=== PATIENT | female | born 1995 | race Hispanic/Latino ===

== ENCOUNTER 2017-07-16 14:54 | Emergency (ER) | payer OTHER ==
[2017-07-16 16:02] LABS: Urine Blood NEGATIVE (NEG); Urine Glucose NEGATIVE (NEG); Urine Protein 1+ (NEG)
[2017-07-16 16:23] LABS: Absolute Lymphocytes (CBC) 1.8 K/uL (0.7-4.9); Absolute Monocytes 0.5 K/uL (0.1-1.3); Absolute Neutrophil 6.4 K/uL (1.8-8.0); Basophils % 0.7 % (0-1.3); Eosinophils % 1.5 % (0-4.4); Hematocrit 39.9 % (36.0-45.0); Lymphocytes % 19.8 % (15.3-44.8); MCH 28.6 pg (27.0-35.0); MCV 85.2 fL (80-100); MPV 9.8 fL (7.6-11.3); Monocytes % 5.9 % (3.3-12.3); RBC Red Blood Cell Count 4.68 M/uL (3.86-4.86)
[2017-07-16] MEDS ORDERED: NA CHLORIDE 0.9% 2,000 ML ONE (16:36)
[2017-07-16] MEDS ORDERED: ONDANSETRON 4 MG/2 ML VIAL ONE (16:36)
[2017-07-16 16:51] LABS: Bicarbonate 25 mEq/L (21-31); Glucose Level 88 mg/dL (65-120); Potassium 3.7 mEq/L (3.6-5.0); Sodium Level 136 mEq/L (135-145)
[2017-07-16 16:54] LABS: ALT/SGPT 18 IU/L (10-60); AST/SGOT 20 IU/L (10-42); Albumin 4.3 g/dL (3.2-5.5); Alkaline Phosphatase 56 IU/L (42-121); BUN Blood Urea Nitrogen 8 mg/dL (6-20); Bilirubin Total 0.6 mg/dL (0.3-1.2); Glomerular Filtration Rate > 90 mL/min (=/>90); Protein, Total 7.2 g/dL (6.0-8.3)
--- NOTE | 2017-07-16 17:11 | ER ---
Nurse's Notes [facility] Name: Colleen Macias Age: 22 yrs Sex: Female : 1995 Arrival Date: 07/16/2017 Time: 15:00 Bed 28 Private MD: Diagnosis: Weakness;Vomiting; related conditions, unspecified, first trimester;Urinary tract infection, site not specified Presentation: 07/16 15:08 Presenting complaint: Patient states: lmp may 12 2017. since last night i have been ch vomiting, abdominal cramping. sob and dizzy all day, I think i am dehydrated. Transition of care: patient was not received from another setting of care. 15:08 Method Of Arrival: Ambulatory 15:09 Onset of symptoms was July 15, 2017 at 21:00. Care prior to arrival: None. 15:09 Acuity: ROWDY 3 ch Triage Assessment: 15:09 General: Appears in no apparent distress. uncomfortable, Behavior is calm, cooperative, ch appropriate for age. Pain: Complains of pain in abdomen. Neuro: No deficits noted. GI: Reports upper abdominal pain, cramping, nausea, vomiting. : Reports discharge, from vagina that is denies blood, states there was some discharge over the weekend. 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 - Social history:: Smoking status: Patient/guardian denies using tobacco. - Family history:: not pertinent. Screenin:34 Abuse screen: Denies threats or abuse. Nutritional screening: No deficits noted. kb1 Tuberculosis screening: No symptoms or risk factors identified. Fall Risk None identified. Assessment: 15:34 General: Appears in no apparent distress. Behavior is calm, cooperative. Pain: kb1 Complains of pain in abdomen. Neuro: Level of Consciousness is awake, alert, obeys commands, Oriented to person, place, time, situation. Cardiovascular: Patient's skin is warm and dry. Respiratory: Respiratory effort is even, unlabored, Respiratory pattern is regular, symmetrical. GI: Abd is soft and non tender. : No signs and/or symptoms were reported regarding the genitourinary system. Reports "dark urine". Derm: Skin is pink, warm \\T\\ dry. 16:23 Reassessment: Patient appears in no apparent distress at this time. Patient and/or kb1 family updated on plan of care and expected duration. Pain level reassessed. Patient is alert, oriented x 3, equal unlabored respirations, skin warm/dry/pink. 17:35 Reassessment: Patient appears in no apparent distress at this time. Patient and/or kb1 family updated on plan of care and expected duration. Pain level reassessed. Patient is alert, oriented x 3, equal unlabored respirations, skin warm/dry/pink. Patient states feeling better. Vital Signs: 15:09 BP 115 / 77; Pulse 92; Resp 16; Temp 98.3; Pulse Ox 99% on R/A; Weight 63.5 kg; Height 5 ft. 2 in. (157.48 cm); Pain 0/10; 16:23 BP 101 / 67; Pulse 61; Resp 18; Pulse Ox 100% ; kb1 17:51 BP 104 / 68; Pulse 68; Resp 18; Pulse Ox 100% ; kb1 15:09 Body Mass Index 25.61 (63.50 kg, 157.48 cm) ED Course: 15:00 Patient arrived in ED. mr 15:09 Triage completed. 15:09 Arm band placed on left wrist. Patient placed in an exam room, on a stretcher. 15:13 Angie Acosta, RN is Primary Nurse. 15:16 Primary Nurse role handed off by Angie Acosta, DWAINE kb1 15:16 Ingrid Caceres, RN is Primary Nurse. kb1 15:17 Gaurav Penaloza MD is Attending Physician. park 15:34 Patient has correct armband on for positive identification. Bed in low position. Call kb1 light in reach. Side rails up X 1. Pulse ox on. NIBP on. 15:34 No provider procedures requiring assistance completed. kb1 16:25 Inserted saline lock: 18 gauge in left antecubital area, using aseptic technique. Blood kb1 collected. 17:10 Rafael Ley MD is Referral Physician. park 17:53 IV discontinued, intact, bleeding controlled, No redness/swelling at site. Pressure kb1 dressing applied. Administered Medications: 16:26 Drug: NS 0.9% 1000 ml Route: IV; Rate: 1 bolus; Site: left antecubital; kb1 17:52 Follow up: IV Status: Completed infusion kb1 16:26 Drug: NS 0.9% 1000 ml Route: IV; Rate: 1 bolus; Site: left antecubital; kb1 17:52 Follow up: IV Status: Completed infusion kb1 16:26 Drug: Zofran 4 mg Route: IVP; Site: left antecubital; kb1 17:00 Follow up: Response: Nausea is decreased kb1 17:40 Drug: Rocephin - (cefTRIAXone) 1 grams Route: IVPB; Infused Over: 5 mins; Site: left kb1 antecubital; 17:45 Follow up: IV Status: Completed infusion kb1 Outcome: 17:10 Discharge ordered by MD. nick 17:53 Discharged to home ambulatory, with family. kb1 17:53 Condition: improved 17:53 Discharge instructions given to patient, Instructed on discharge instructions, follow up and referral plans. medication usage, Demonstrated understanding of instructions, follow-up care, medications, Prescriptions given X 5 17:54 Patient left the ED. kb1 Signatures: Angie Acosta, Gaurav Thomas RN, ch, MD MD cha Rivera, Maria mr Brown, Kristina, RN RN kb1
--- NOTE | 2017-07-16 17:11 | EDPHYS ---
Physician Documentation [facility] Name: Colleen Macias Age: 22 yrs Sex: Female : 1995 Arrival Date: 07/16/2017 Time: 15:00 Bed 28 Private MD: ED Physician Gaurav Penaloza HPI: 07/16 16:08 This 22 yrs old Female presents to ER via Ambulatory with complaints of park Weakness, Shortness Of Breath, Urinary Problem. 16:08 The patient presents to the emergency department with weakness of the. Onset: The park symptoms/episode began/occurred 3 day(s) ago. Context: occurred at an unknown location. 16:08 The patient presents to the emergency department with nausea, vomiting. Possible park causes: . The symptoms are aggravated by nothing. The symptoms are alleviated by nothing. Severity of symptoms: At their worst the symptoms were mild in the emergency department the symptoms are unchanged. 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 - Social history:: Smoking status: Patient/guardian denies using tobacco. - Family history:: not pertinent. ROS: 16:08 Constitutional: Negative for fever, chills, and weight loss, Eyes: Negative for injury, park pain, redness, and discharge, ENT: Negative for injury, pain, and discharge, Neck: Negative for injury, pain, and swelling, Cardiovascular: Negative for chest pain, palpitations, and edema, Respiratory: Negative for shortness of breath, cough, wheezing, and pleuritic chest pain, Back: Negative for injury and pain, : Negative for injury, bleeding, discharge, and swelling, MS/Extremity: Negative for injury and deformity, Skin: Negative for injury, rash, and discoloration, Psych: Negative for depression, anxiety, suicide ideation, homicidal ideation, and hallucinations, Allergy/Immunology: Negative for hives, rash, and allergies, Endocrine: Negative for neck swelling, polydipsia, polyuria, polyphagia, and marked weight changes, Hematologic/Lymphatic: Negative for swollen nodes, abnormal bleeding, and unusual bruising. 16:08 Abdomen/GI: Positive for nausea, vomiting. 16:08 Neuro: Positive for weakness. Exam: 16:09 Constitutional: This is a well developed, well nourished patient who is awake, alert, park and in no acute distress. Head/Face: Normocephalic, atraumatic. Eyes: Pupils equal round and reactive to light, extra-ocular motions intact. Lids and lashes normal. Conjunctiva and sclera are non-icteric and not injected. Cornea within normal limits. Periorbital areas with no swelling, redness, or edema. ENT: Nares patent. No nasal discharge, no septal abnormalities noted. Tympanic membranes are normal and external auditory canals are clear. Oropharynx with no redness, swelling, or masses, exudates, or evidence of obstruction, uvula midline. Mucous membranes moist. Neck: Trachea midline, no thyromegaly or masses palpated, and no cervical lymphadenopathy. Supple, full range of motion without nuchal rigidity, or vertebral point tenderness. No Meningismus. Chest/axilla: Normal chest wall appearance and motion. Nontender with no deformity. No lesions are appreciated. Cardiovascular: Regular rate and rhythm with a normal S1 and S2. No gallops, murmurs, or rubs. Normal PMI, no JVD. No pulse deficits. Respiratory: Lungs have equal breath sounds bilaterally, clear to auscultation and percussion. No rales, rhonchi or wheezes noted. No increased work of breathing, no retractions or nasal flaring. Abdomen/GI: Soft, non-tender, with normal bowel sounds. No distension or tympany. No guarding or rebound. No evidence of tenderness throughout. Back: No spinal tenderness. No costovertebral tenderness. Full range of motion. Female : Normal external genitalia. Skin: Warm, dry with normal turgor. Normal color with no rashes, no lesions, and no evidence of cellulitis. MS/ Extremity: Pulses equal, no cyanosis. Neurovascular intact. Full, normal range of motion. Neuro: Awake and alert, GCS 15, oriented to person, place, time, and situation. Cranial nerves II-XII grossly intact. Motor strength 5/5 in all extremities. Sensory grossly intact. Cerebellar exam normal. Normal gait. Psych: Awake, alert, with orientation to person, place and time. Behavior, mood, and affect are within normal limits. Vital Signs: 15:09 BP 115 / 77; Pulse 92; Resp 16; Temp 98.3; Pulse Ox 99% on R/A; Weight 63.5 kg; Height ch 5 ft. 2 in. (157.48 cm); Pain 0/10; 16:23 BP 101 / 67; Pulse 61; Resp 18; Pulse Ox 100% ; kb1 17:51 BP 104 / 68; Pulse 68; Resp 18; Pulse Ox 100% ; [facility] 15:09 Body Mass Index 25.61 (63.50 kg, 157.48 cm) [facility]: 15:17 Patient medically screened. [facility] 16:09 Data reviewed: vital signs, nurses notes, lab test result(s). [facility] 07/16 15:54 Order name: Urine Dipstick--Ancillary (enter results); Complete Time: 16:07 07/16 16:04 Order name: Urine --Ancillary (enter results); Complete Time: 17:10 [facility] 07/16 16:07 Order name: CBC with Diff; Complete Time: 17:10 [facility] 07/16 16:07 Order name: Comprehensive Metabolic Panel; Complete Time: 17:10 [facility] 07/16 17:10 Order name: Urine Culture [facility] Administered Medications: 16:26 Drug: NS 0.9% 1000 ml Route: IV; Rate: 1 bolus; Site: left antecubital; [facility] 17:52 Follow up: IV Status: Completed infusion [facility] 16:26 Drug: NS 0.9% 1000 ml Route: IV; Rate: 1 bolus; Site: left antecubital; [facility] 17:52 Follow up: IV Status: Completed infusion [facility] 16:26 Drug: Zofran 4 mg Route: IVP; Site: left antecubital; [facility] 17:00 Follow up: Response: Nausea is decreased [facility] 17:40 Drug: Rocephin - (cefTRIAXone) 1 grams Route: IVPB; Infused Over: 5 mins; Site: left [facility] antecubital; 17:45 Follow up: IV Status: Completed infusion [facility] Disposition: 07/16/17 17:10 Discharged to Home. Impression: Weakness, Vomiting, related conditions, unspecified, first trimester, Urinary tract infection, site not specified. - Condition is Stable. - Discharge Instructions: Nausea and Vomiting, Urinary Tract Infection, Weakness, First Trimester of , [id number], Nausea and Vomiting, [id number], Urinary Tract Infection, [id number], First Trimester of , Weakness, [id number], Pelvic Rest. - Prescriptions for Diclegis 10- 10 mg Oral tablet,delayed release (DR/EC) - take 1 tablet by ORAL route 3 times per day and 2 tablets at bedtime; 60 tablet. Vitamin 27- 0.8 mg Oral Tablet - take 1 tablet by ORAL route once daily; 30 tablet. Zofran 4 mg Oral Tablet - take 1 tablet by ORAL route every 12 hours As needed; 14 tablet. Folic Acid 1 mg Oral Tablet - take 1 tablet by ORAL route once daily; 30 tablet. Macrobid 100 mg Oral Capsule - take 1 capsule by ORAL route every 12 hours for 7 days; 14 capsule. - Medication Reconciliation Form, Thank You Letter, Antibiotic Education, Presription Opioid Use form. - Follow up: Private Physician; When: 2 - 3 days; Reason: Recheck today's complaints, Continuance of care, Re-evaluation by your physician. Follow up: Rafael Ley; When: 2 - 3 days; Reason: Recheck today's complaints, Re-evaluation by your physician. - Problem is new. - Symptoms have improved. Signatures: Dispatcher [employer] Angie Villa, RN Gaurav Thomas ch, MD MD cha Brown, Kristina, RN RN kb1
[2017-07-16] MEDS ORDERED: CEFTRIAXONE/SWI 1gm 1 GM/10 ML SYR ONE (17:58)
== END 2017-07-16 17:54 | disposition home or self-care (01) ==
LOC: ER 14:54
DX: O23.41 Unspecified infection of urinary tract in pregnancy, first trimester (principal)
CPT/HCPCS: 36415; 80053; 81003; 81025; 85025; 87086; 87088; 96361; 96374; 96375; 99284; J0696; J2405; J7030